=== PATIENT | female | born 1960 | race Caucasian/White ===

== ENCOUNTER 2021-05-29 15:39 | Emergency (ER) | payer MEDICARE, OTHER ==
[~2021-05-29] VITALS: Ht 162.6 cm; Wt 78.9 kg
[~2021-05-29 15:39] MED LIST: AMIT25TA11; DIVA1TAB39; TRAZ50TA2
[2021-05-29 15:48] VITALS: BP 150/76
[2021-05-29 16:34] LABS: Basophils # (auto) 0.1 10 ^3/uL (0-0.2); Basophils % (auto) 0.8 % (0.0-2.0); Eosinophils # (auto) 0.1 10 ^3/uL (0-0.8); Eosinophils % (auto) 1.6 % (0.0-7.0); Hematocrit 33.5 % (36.0-46.0); Hemoglobin 11.2 g/dL (12.2-16.2); Lymphocytes # (auto) 0.9 10 ^3/uL (0.4-5.4); Lymphocytes % (auto) 9.5 % (10.0-50.0); Mean Corpuscular Hemoglobin 28.5 pg (28.0-32.0); Mean Corpuscular Hgb Conc. 33.6 g/dL (32.0-36.0); Mean Corpuscular Volume 84.8 fL (80.0-100.0); Monocytes % (auto) 10.5 % (0.0-12.0); Neutrophils # (auto) 7.2 10 ^3/uL (1.6-8.6); Neutrophils % (auto) 77.6 % (37.0-80.0); Nucleated Red Blood Cells % 0.1 %; Red Blood Cells 3.94 10^6/uL (4.0-5.20); Red Cell Distribution Width 13.9 % (11.8-14.3); White Blood Cell 9.3 10^3/uL (4.4-10.8)
[2021-05-29 17:03] LABS: Albumin 2.9 g/dL (3.4-5.0); Calcium 8.5 mg/dL (8.5-10.1); Potassium 3.2 mmol/L (3.5-5.1)
[2021-05-29 17:09] LABS: BUN/Creatinine Ratio 8.8; Bilirubin, Total 0.3 mg/dL (0.2-1.0); Total Protein 7.1 g/dL (6.4-8.2)
[2021-05-29] MEDS ORDERED: methylPREDNISolone SOD SUCC 125 MG/2 ML VL IV ONE (17:30)
== END 2021-05-29 21:33 | disposition left against medical advice (07) ==
LOC: ER 15:39
DX: J96.00 Acute respiratory failure, unspecified whether with hypoxia or hypercapnia (principal); J18.9 Pneumonia, unspecified organism; K21.9 Gastro-esophageal reflux disease without esophagitis; Z98.51 Tubal ligation status; Z20.822 Contact with and (suspected) exposure to COVID-19; Z87.891 Personal history of nicotine dependence
CPT/HCPCS: 36415; 71045; 80053; 82728; 83735; 84484; 85025; 86141; 87426; 93005

== ENCOUNTER 2023-03-30 13:45 | Emergency (ER) | payer BC ==
[~2023-03-30] VITALS: Ht 162.6 cm; Wt 70.0 kg
[~2023-03-30 13:45] MED LIST changes: -AMIT25TA11; +AMIT25TA19; +TRAZ-227; -TRAZ50TA2
[2023-03-30 14:46] LABS: Hematocrit 41.3 % (36.0-46.0); Hemoglobin 13.2 g/dL (12.2-16.2); Mean Corpuscular Hemoglobin 28.3 pg (28.0-32.0); Mean Corpuscular Volume 88.4 fL (80.0-100.0); Red Blood Cells 4.68 10^6/uL (4.0-5.20); Red Cell Distribution Width 14.1 % (11.8-14.3); White Blood Cell 8.3 10^3/uL (4.4-10.8)
[2023-03-30 15:06] LABS: Alanine Aminotransferase 20 U/L (7-40); Albumin 4.8 g/dL (3.2-4.8); Alkaline Phosphatase 151 U/L (46-116); Anion Gap 6 (5-15); Aspartate Aminotransferase 19 U/L (13-40); Bilirubin, Total 0.5 mg/dL (0.2-1.0); Blood Urea Nitrogen 9 mg/dL (9-23); Calcium 9.5 mg/dL (8.7-10.4); Carbon Dioxide 29 mmol/L (20-30); Chloride 103 mmol/L (98-107); Glucose 90 mg/dL (74-106); Potassium 4.2 mmol/L (3.5-5.1); Sodium 138 mmol/L (136-145); Total Protein 7.2 g/dL (5.7-8.2)
[2023-03-30 15:46] LABS: Band Neutrophils % (manual) 0; Basophils % (manual) 0 (0.0-2.0); Blast Cells 0; Metamyelocytes % 0; Myelocytes % 0; Promyelocytes % 0; Reactive Lymphocytes 0
[2023-03-30 16:28] LABS: Urine Bacteria NONE SEEN /hpf (None Seen); Urine Blood Negative /uL (Negative); Urine Clarity Clear (Clear); Urine Color Colorless (Yellow); Urine Protein, UAD Negative (Negative); Urine Specific Gravity 1.007 (1.001-1.035); Urine Urobilinogen Normal (Negative); Urine WBC 1 /hpf (0 - 5)
[2023-03-30] MEDS ORDERED: IOHEXOL 350 MG/ML 100ML IJ ONE (17:34)
[2023-03-30 17:52] LABS: Anisocytosis Slight; Eosinophils % (manual) 21 (0-7); Lymphocytes % (manual) 12 (10.0-50.0); Monocytes % (manual) 5 (0-12); Platelet Estimate Adequate
[2023-03-30 18:32] LABS: INR 0.99 (0.9-1.15); Prothrombin Time 10.4 sec (9.3-11.8)
[2023-03-30 19:50] VITALS: PULSE 74; RESP 16; O2SAT 95
[2023-03-30] MEDS ORDERED: METH4PAK PO (23:17)
[2023-03-30] MEDS ORDERED: ALBUAER3 IN (23:17)
[2023-03-31] MEDS ORDERED: ALBUTEROL SULF 2.5 MG/0.5ML(0.5%) NEB SOLN NEB ONE
[2023-03-31] MEDS ORDERED: IPRATROPIUM BROM 0.5 MG/2.5ML INH SOL NEB ONE
[2023-03-31] MEDS ORDERED: ALBUTEROL MEDNEB 2.5 mg/3ml NEB ONE (00:19)
[2023-03-31 01:00] VITALS: BP 186/88; PULSE 89; RESP 13; TEMP 98.3; O2SAT 93
== END 2023-03-31 01:18 | disposition home or self-care (01) ==
LOC: ER 13:45
DX: R91.8 Other nonspecific abnormal finding of lung field (principal); R06.2 Wheezing; R06.00 Dyspnea, unspecified; F41.9 Anxiety disorder, unspecified; K21.9 Gastro-esophageal reflux disease without esophagitis; Z98.890 Other specified postprocedural states; Z87.891 Personal history of nicotine dependence; Z79.899 Other long term (current) drug therapy
CPT/HCPCS: 36415; 71046; 71275; 80053; 81001; 83735; 84484; 85007; 85027; 85379; 85610; 93005; 94640; 99285; J7644; Q9967